=== PATIENT | male | born 1945 | race Caucasian/White ===

== ENCOUNTER → 2021-03-12 15:47 | Outpatient (CLI) | payer MEDICARE, OTHER, SELFPAY ==
[2021-03-12 18:09] LABS: BUN 16 mg/dL (7-18); Creatinine, Serum 1.11 mg/dL (0.70-1.30); EST Glomerular Filtration Rate 68 mL/min (>60); Est Glom Filt Rate - Afr Amer 83 mL/min (>60)
== END ==
DX: G20 Parkinson's disease (principal)
CPT/HCPCS: 36415; 82565; 84520

== ENCOUNTER 2025-03-17 10:58 | Emergency (ER) | payer OTHER, SELFPAY ==
[2025-03-17 10:59] VITALS: BP 126/70; PULSE 60; RESP 16; TEMP 36.1; O2SAT 99
--- NOTE | 2025-03-17 11:06 | CT_ITS ---
PROCEDURE: BRAIN/HEAD WITHOUT CONTRAST 03/17/2025 REASON FOR EXAM: HEAD INJURY ON BLOOD THINNERS TECHNIQUE: Procedure Code: CTBR Modality: CT Procedure: BRAIN/HEAD WITHOUT CONTRAST Coronal and Sagittal reconstruction series were provided. One or more dose reduction techniques were used (e.g., Automated exposure control, adjustment of the mA and/or kV according to patient size, use of iterative reconstruction technique. RADIATION DOSE SUMMARY: CTDlvol: 44.99 mGy DLP: 863.6 mGycm COMPARISON: None FINDINGS: Brain: Low density in the periventricular white matter suggests mild chronic small vessel ischemic changes. CSF Spaces: Mild generalized cerebral atrophy Sinuses/Mastoids: Clear at visualized levels Bones: No fracture. CT/Brain/Head without Contrast IMPRESSION: CHRONIC CHANGES. NO ACUTE FINDINGS. Reading Location: [place] [id number]
--- NOTE | 2025-03-17 11:20 | RAD_ITS ---
PROCEDURE: CHEST PA AND LATERAL 03/17/2025 REASON FOR EXAM: FALL, RIB PAIN TECHNIQUE: Procedure Code: RADCXR Modality: DX Procedure: CHEST PA AND LATERAL FINDINGS: Left chest pacemaker with the heart borders are unremarkable. Mild vascular indistinctness lung bases favoring mild edema. Left shoulder arthroplasty. RAD/Chest PA and Lateral IMPRESSION: Pulmonary findings as above. Reading Location: [id number]
--- NOTE | 2025-03-17 11:20 | RAD_ITS ---
PROCEDURE: KNEE 4 OR MORE VIEWS 03/17/2025 REASON FOR EXAM: FALL TECHNIQUE: Procedure Code: RADKN Modality: DX Procedure: KNEE 4 OR MORE VIEWS Four views of the right knee COMPARISON: None FINDINGS: There is a total knee prosthesis in position with no visible hardware failure or loosening. Soft tissue calcifications are noted in the anterior soft tissues at the distal femur. There is a small visible effusion. Osteopenia is noted. RAD/Knee 4 or More Views IMPRESSION: There is a total knee prosthesis in position with no visible hardware failure o r loosening. Soft tissue calcifications are noted in the anterior soft tissues at the distal femur. There is a small visible effusion. Reading Location: [facility]
--- NOTE | 2025-03-17 11:20 | RAD_ITS ---
PROCEDURE: SHOULDER MIN 2 VIEWS 03/17/2025 REASON FOR EXAM: FALL TECHNIQUE: Procedure Code: RADSH Modality: DX Procedure: SHOULDER MIN 2 VIEWS Laterality: Right COMPARISON: None. FINDINGS: Four views of the right shoulder demonstrate no fractures or dislocations. Very mild osteoarthritic changes are seen involving the acromioclavicular joint and glenohumeral joint. There is very subtle irregularity of the right humeral head at the insertion site of the rotator cuff tendon. There are small lytic lesions seen in the right humeral head near the insertion site of the rotator cuff tendon. These lytic lesions have sclerotic margins. They are most compatible with benign bony cysts. The acromial humeral space is well-maintained. The coracoclavicular space is well-maintained. Visualized right ribs are intact. Visualized right lung is expanded and clear. 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 Humeral head findings may be associated with rotator cuff tendon injury. An MR I of the right shoulder may be of value if clinically warranted. Reading Location: [id number]
--- NOTE | 2025-03-17 11:50 | EX.ED.GENINJ ---
HPI History of Present Illness Chief Complaint: Fall Detail of Chief Complaint: Fall Informant: patient and family Narrative Narrative: Patient presents to the emergency department after sustaining a fall while at home today this morning. Patient states that he tried to turn and cut his foot on a tile and fell striking his head. He complains of pain in his right shoulder and right knee. He has some mild discomfort to the anterior right chest. Patient is on apixaban. He has history of A-fib. He has history of prior TIAs and has history of Parkinson's. He denies neck pain. [facility] Medical History (Updated 03/17/25 @ 12:[address] Xavi Marin, DO) Parkinson's disease Anxiety Depression GERD (gastroesophageal reflux disease) CPAP (continuous positive airway pressure) dependence Non-smoker Sleep apnea COPD (chronic obstructive pulmonary disease) Atrial fibrillation Pacemaker TIA (transient ischemic attack) Home Medications ?Medication ?Instructions ?Recorded ?Last Taken ?Type cholecalciferol (vitamin D3) 50 2,000 unit PO DAILY 10/01/13 03/16/25 History mcg (2,000 unit) tablet pantoprazole 40 mg tablet,delayed 40 mg PO BID 10/01/13 03/17/25 History release simvastatin 40 mg tablet 40 mg PO QHS 10/01/13 03/16/25 History tamsulosin 0.4 mg capsule 0.4 mg PO Q24H 10/01/13 03/17/25 History apixaban 5 mg tablet 5 mg PO BID 03/17/25 03/17/25 History carbidopa 25 mg-levodopa 100 mg See Rx Instructions PO .COMPLEX 03/17/25 03/17/25 History tablet (Sinemet) carbidopa-levodopa PO QHS 03/17/25 03/16/25 History duloxetine PO BID PRN 03/17/25 03/17/25 History gabapentin 600 mg tablet 600 mg PO TID 03/17/25 03/17/25 History melatonin 12 mg disintegrating 12 mg PO QHS 03/17/25 03/16/25 History tablet Allergy/AdvReac Type Severity Reaction Status Date / Time Iodinated Contrast Media Allergy Unknown Verified 10/22/16 23:13 (Iodinated Contrast Media - IV Dye) Social History Smoking Status: Never smoker ROS ROS ED Review of Systems ROS Unobtainable: other Constitutional Constitutional ED: Reports lethargy; Denies chills, fever(s), sweats or weight loss Eyes Eyes: Reports other Details: Head injury ; Denies blurry vision, change in vision or diplopia ENT ENT ED: Denies rhinorrhea or sore throat Cardiovascular Cardiovascular: Reports chest pain; Denies orthopnea or racing heartbeat Respiratory/Chest Respiratory/Chest: Denies cough, dyspnea, dyspnea on exertion, orthopnea or sputum Gastrointestinal Gastrointestinal: Denies abdominal pain, diarrhea, nausea or vomiting Genitourinary Genitourinary ED: Denies dysuria, hematuria or urinary frequency Musculoskeletal Musculoskeletal: Denies arthralgias, back pain, myalgias or neck pain Integumentary Reports other Details: Right shoulder pain and right knee pain ; Denies abscess, Abrasions or rash Neurologic Neurologic: Denies headache(s) or weakness Psychiatric Psychiatric: Denies anxiety, depression or suicidal thoughts Endocrine Endocrinology: Denies polydipsia, polyphagia or polyuria Hematologic/Lymphatic Hematologic/Lymphatic: Denies easy bleeding, easy bruising or lymphadenopathy Allergic/Immunologic Allergic/Immunologic ED: Denies mouth swelling, tongue swelling or urticaria EXAM Physical Exam Const Vital Signs: 03/17/25 10:59 03/17/25 11:56 Temperature 97.0 F L Temperature Source Temporal Pulse Rate 60 Respiratory Rate 16 Respiratory Effort Normal Respiratory Depth Normal Respiratory Pattern Normal Blood Pressure 126/70 H Blood Pressure Mean 88 Pulse Ox 99 Oxygen Delivery Method Room Air Room Air Positive well nourished and well developed General Appearance ED: well developed and NAD HEENT Reports TM's clear and moist mucous membranes HEENT Narrative: Superficial abrasion to the right forehead. No significant hematoma. No bony step-offs or depressions. normocephalic and atraumatic; Negative for trauma or tenderness Tympanic Membrane ED: Yes TM's clear Eyes PERRL and EOMs intact bilaterally General Eye ED: Negative for pale conjunctiva or scleral icterus Neck no lymphadenopathy, supple and no JVD General: Negative for tenderness Chest Wall inspection of chest normal; Negative for palpation of chest normal Chest Narrative: Mild tenderness to palpation over the right anterior chest wall. No Ecchymosis or bruising noted. Chest: Negative for tenderness Resp normal respiratory effort and clear to auscultation bilaterally Effort and Inspection: Negative for respiratory distress or pain with movement Auscultation: Negative for rhonchi, wheezes or diminished lung sounds Cardio regular rate, regular rhythm, S1 normal heart sound, S2 normal heart sound and no murmurs Peripheral Pulses: pulses 2+ throughout GI normal to inspection, nondistended, normoactive bowel sounds, soft to palpation, non-tender, non-distended and no masses Back/Spine no CVA tenderness and no thoracic nor lumbar tenderness Extremity Extremity Narrative: Right shoulder-no obvious deformity. Good range of motion. No ecchymosis or bruising noted. Neurovascular intact distally. Right knee-no ecchymosis or bruising noted. No effusion. Good range of motion in flexion extension. Neurovascular intact distally. Ligamentously stable. General Extremety ED: Negative for edema General Extremity: Negative for edema Neuro oriented x3, CN's II-XII intact bilaterally, no sensory deficits noted and gait normal Sensorium / Orientation: awake, alert, oriented to person, oriented to place and oriented to time Motor Exam: strength 5/5 throughout and strength abnormal Psych mental status grossly normal Skin no rashes or lesions noted and no wounds MDM MDM MDM Narrative Medical decision making narrative: Patient presents to the emergency department with a mechanical fall and head injury as well as injury to his right shoulder and right knee. Clinically he looks well. CT scan of the brain without contrast showed no intracranial hemorrhage or skull fracture. Patient had x-rays of the right knee as well as right shoulder and chest x-ray that was unremarkable. C-spine cleared clinically as he has no C-spine tenderness on exam and he has normal range of motion that is painless. Radiography Diagnostic Testing: Clinical Impression(s) from Imaging Studies Brain CT 03/17/25 11:06 IMPRESSION: CHRONIC CHANGES. NO ACUTE FINDINGS. Reading Location: [facility] Chest X-Ray 03/17/25 11:20 IMPRESSION: Pulmonary findings as above. Reading Location: [id number] Knee X-Ray 03/17/25 11:20 IMPRESSION: There is a total knee prosthesis in position with no visible hardware failure or loosening. Soft tissue calcifications are noted in the anterior soft tissues at the distal femur. There is a small visible effusion. 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 Humeral head findings may be associated with rotator cuff tendon injury. An MRI of the right shoulder may be of value if clinically warranted. Reading Location: [facility] 2 view chest x-ray obtained interpreted by myself as no evidence of rib fracture or pneumothorax or acute disease process. Radiology in agreement. 4 views of the right knee obtained interpreted by myself as no evidence of fracture or other abnormality. Radiology in agreement. 4 view x-rays of the right shoulder obtained and interpreted by myself as no evidence of fracture or dislocation. Radiology felt there was some lytic lesions of the humerus likely benign bone cysts. There was an abnormality at the insertion of the rotator cuff which may be related to rotator cuff injury and if clinically indicated would follow-up with MRI as needed. Discharge Plan Triage Chief Complaint: Fall ED Provider: Xavi Marin Dx/Rx/DC Orders Clinical Impression: Fall, Closed head injury, Contusion of knee, right, Contusion of right shoulder Instructions: ED Contusion, Lower Extremity, ED Mechanical Fall, ED Head Injury (Adult), ED Shoulder Bruise Prescriptions: No Action simvastatin 40 MG tablet 40 mg PO QHS tamsulosin 0.4 MG capsule 0.4 mg PO Q24H pantoprazole 40 MG tablet 40 mg PO BID cholecalciferol (vitamin D3) 2,000 UNIT tablet 2,000 unit PO DAILY apixaban 5 mg tablet 5 mg PO BID Patient Comments: wasnt sure of the exact strength gabapentin 600 mg tablet 600 mg PO TID duloxetine [Cymbalta] PO BID PRN carbidopa-levodopa [Sinemet] 25-100 mg tablet See Rx Instructions PO .COMPLEX Rx Instructions: 3qam, 3 qpm, 2.5 qhs orally; administer 30-60 minutes before bedtime carbidopa-levodopa PO QHS melatonin 12 mg tablet,disintegrating 12 mg PO QHS [facility] Care Provider[facility] [facility] [Primary Care Provider, None] Print Language: Slovenian Disposition Disposition: Home, Self Care
[2025-03-17 11:52] VITALS: BMI 40.6
[2025-03-17 13:10] VITALS: BP 139/70; PULSE 67; RESP 16; TEMP 36.8; O2SAT 100
== END 2025-03-17 13:11 | disposition home or self-care (01) ==
LOC: ED 12:48
PROVIDERS: Emergency Provider Emergency Medicine; Visit Provider Emergency Medicine
DX: S09.90XA Unspecified injury of head, initial encounter (principal); J44.9 Chronic obstructive pulmonary disease, unspecified; I48.91 Unspecified atrial fibrillation; S80.01XA Contusion of right knee, initial encounter; S40.011A Contusion of right shoulder, initial encounter; Z79.01 Long term (current) use of anticoagulants; K21.9 Gastro-esophageal reflux disease without esophagitis; Z79.899 Other long term (current) drug therapy; W01.0XXA Fall on same level from slipping, tripping and stumbling without subsequent striking against object, initial encounter
CPT/HCPCS: 70450; 71046; 73030; 73564; 99282